=== PATIENT | female | born 1970 | race Caucasian/White ===

== ENCOUNTER 2016-09-01 15:46 | Emergency (ER) | payer BC ==
[~2016-09-01] VITALS: Ht 157.5 cm; Wt 63.6 kg
[2016-09-01] MEDS ORDERED: NORCO 5/3251 TABLET PO (18:23)
[2016-09-01] MEDS ORDERED: MOTRIN600 MG PO (18:23)
[2016-09-01] MEDS ORDERED: FLEXERIL5 MG PO (18:23)
[2016-09-01 18:43] VITALS: BP 123/75
== END 2016-09-01 18:44 | disposition home or self-care (01) ==
LOC: EME 15:46
DX: M54.5 Low back pain (principal); M25.551 Pain in right hip; M25.552 Pain in left hip; M79.604 Pain in right leg; M79.605 Pain in left leg
CPT/HCPCS: 99281; 99284; J2270